=== PATIENT | female | born 1965 | race Caucasian/White ===

== ENCOUNTER 2017-05-03 16:58 | Emergency (ER) | payer BC ==
[~2017-05-03] VITALS: Ht 160 cm; Wt 72.6 kg
[2017-05-03 17:17] VITALS: BP 170/100
--- NOTE | 2017-05-03 18:01 | NUR ---
TAKEN TO OF1 AT THIS TIME
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
[2017-05-03] MEDS ORDERED: KETOROLAC 30 MG/ML VIAL IM ONE (18:20)
--- NOTE | 2017-05-03 18:46 | NUR ---
Patient discharged with bp161/99; wanda 11/11, aware. Written and verbal after care instructions given and explained. Patient alert, oriented and verbalized understanding of instructions. Ambulatory with steady gait. All questions addressed prior to discharge. ID band removed. Patient advised to follow up with PMD. Rx of naproxen given. Patient educated on indication of medication including possible reaction and side effects. Opportunity to ask questions provided and answered.
[2017-05-03 18:47] VITALS: BP 161/99
== END 2017-05-03 18:46 | disposition home or self-care (01) ==
LOC: MED 16:58
DX: R51 Headache (principal); I10 Essential (primary) hypertension; Z79.82 Long term (current) use of aspirin; V49.49XA Driver injured in collision with other motor vehicles in traffic accident, initial encounter; Y93.89 Activity, other specified; Y92.89 Other specified places as the place of occurrence of the external cause; Y99.8 Other external cause status
CPT/HCPCS: 96372; 99283; J1885